=== PATIENT | male | born 1955 | race Caucasian/White ===

== ENCOUNTER 2017-09-09 09:48 | Emergency (ER) | payer BC ==
[~2017-09-09] VITALS: Ht 170.2 cm; Wt 65.0 kg
[2017-09-09] VITALS (10 sets, daily range): BP systolic 128–193; BP diastolic 72–98; PULSE 71–86; RESP 16–20; TEMP 97.8; O2SAT 98–100
--- NOTE | 2017-09-09 10:22 | PD ---
HPI Chief Complaint: Complaint Time Seen by Provider: 10:15 Travel History International Travel<30 days: No Contact w/Intl Traveler<30days: No Traveled to known affect area: No History of Present Illness HPI This 62-year-old male says he put his penis and testicles into the opening of a weight plate 5 hours ago. He has been unable to remove it. He applied ice. He has applied lubricant has not been able to remove them. Penis and scrotum have become quite swollen and painful. He last ate last night. He was able to urinate this morning. He denies any medical illnesses. [facility] Past Medical History Medical History: Denies Significant Hx Past Surgical History Surgical History: No Previous Surgery Social History Alcohol Use: No Tobacco Use: No Substance Use: No Allergies-Medications (Allergen,Severity, Reaction): Coded Allergies: No Known Allergies (Verified Allergy, Unknown, 09/09/17) Reported Meds & Prescriptions Reported Meds & Active Scripts Active No Active Prescriptions or Reported Medications Review of Systems General / Constitutional: No: Fever, Chills Eyes: No: Diploplia HENT: No: Headaches, Vertigo Cardiovascular: No: Chest Pain or Discomfort, Palpitations Respiratory: No: Cough, Shortness of Breath Gastrointestinal: No: Vomiting, Diarrhea Musculoskeletal: No: Myalgias, Arthralgias Skin: No Rash Physical Exam Narrative GENERAL: Well-developed male SKIN: Focused skin assessment warm/dry. HEAD: Atraumatic. Normocephalic. EYES: Pupils equal and round. No scleral icterus. No injection or drainage. ENT: No nasal bleeding or discharge. Mucous membranes pink and moist. NECK: Trachea midline. No JVD. CARDIOVASCULAR: Regular rate and rhythm. No murmur appreciated. RESPIRATORY: No accessory muscle use. Clear to auscultation. Breath sounds equal bilaterally. GASTROINTESTINAL: Abdomen soft, non-tender, nondistended. Hepatic and splenic margins not palpable. His penis and scrotum are engorged and verbal. He does have sensation. There is a 5 pound weight plate at the base of the penis and scrotum in which the penis and scrotum are entrapped MUSCULOSKELETAL: No obvious deformities. No clubbing. No cyanosis. No edema. NEUROLOGICAL: Awake and alert. No obvious cranial nerve deficits. Motor grossly within normal limits. Normal speech. PSYCHIATRIC: Appropriate mood and affect; insight and judgment normal. Data Data Last Documented VS Vital Signs Date Time Temp Pulse Resp B/P (MAP) Pulse Ox O2 Delivery O2 Flow Rate FiO2 09/09/17 11:13 71 18 162/83 (109) 100 Room Air 09/09/17 09:57 97.8 Orders Orders Electrocardiogram (09/09/17 10:15) Complete Blood Count With Diff (09/09/17 10:15) Basic Metabolic Panel (Bmp) (09/09/17 10:15) Ondansetron Inj (Zofran Inj) (09/09/17 10:30) Hydromorphone Pf Inj (Dilaudid Pf Inj) (09/09/17 10:30) Hydromorphone Pf Inj (Dilaudid Pf Inj) (09/09/17 11:45) Midazolam Inj (Versed Inj) (09/09/17 12:15) Midazolam Inj (Versed Inj) (09/09/17 12:15) Labs Laboratory Tests Test 09/09/17 10:20 White Blood Count 11.3 TH/MM3 Red Blood Count 4.59 MIL/MM3 Hemoglobin 13.7 GM/DL Hematocrit 41.6 % Mean Corpuscular Volume 90.7 FL Mean Corpuscular Hemoglobin 30.0 PG Mean Corpuscular Hemoglobin Concent 33.0 % Red Cell Distribution Width 13.3 % Platelet Count 261 TH/MM3 Mean Platelet Volume 8.1 FL Neutrophils (%) (Auto) 79.2 % Lymphocytes (%) (Auto) 14.2 % Monocytes (%) (Auto) 5.9 % Eosinophils (%) (Auto) 0.3 % Basophils (%) (Auto) 0.4 % Neutrophils # (Auto) 9.0 TH/MM3 Lymphocytes # (Auto) 1.6 TH/MM3 Monocytes # (Auto) 0.7 TH/MM3 Eosinophils # (Auto) 0.0 TH/MM3 Basophils # (Auto) 0.0 TH/MM3 CBC Comment DIFF FINAL Differential Comment Blood Urea Nitrogen 31 MG/DL Creatinine 0.94 MG/DL Random Glucose 125 MG/DL Calcium Level 8.8 MG/DL Sodium Level 139 MEQ/L Potassium Level 3.7 MEQ/L Chloride Level 104 MEQ/L Carbon Dioxide Level 24.7 MEQ/L Anion Gap 10 MEQ/L Estimat Glomerular Filtration Rate 82 ML/MIN MDM Medical Decision Making Medical Screen Exam Complete: Yes Emergency Medical Condition: Yes Medical Record Reviewed: Yes Differential Diagnosis Differential includes entrapped genitalia Narrative Course Patient made several attempts at home to for himself using compression and lubricants. I also tried to compress the penis and scrotum without success. I called Dr. Vidal of urology who advised that he did not have any cutting tools that wouldn't remove this way. He recommended that we contact the fire department. We called the fire department and they have come and have been able to cut the weight off. After removal there is some excoriation of the skin at the site of entrapment with small abrasion. Diagnosis Primary Impression: entrapment of the genitalia Scripts No Active Prescriptions or Reported Meds Disposition: 01 DISCHARGE HOME Condition: Stable Adam Nguyen MD Sep 09, 2017 10:22
[2017-09-09] MEDS ORDERED: ONDANSETRON HCL 4 MG/2 ML VIAL IV PUSH ONE (10:30)
[2017-09-09] MEDS ORDERED: HYDROmorphone HCL PF 2 MG/ML VIAL IV PUSH ONE ×2 (10:30→11:45)
[2017-09-09 10:42] LABS: BASOPHIL % 0.4 % (0.0-2.0); EOSINOPHIL % 0.3 % (0.0-4.0); HEMATOCRIT 41.6 % (39.0-51.0); HEMOGLOBIN 13.7 GM/DL (13.0-17.0); LYMPH % 14.2 % (9.0-44.0); LYMPHOCYTE # 1.6 TH/MM3 (1.0-4.8); MEAN CELL VOLUME 90.7 FL (80.0-100.0); MEAN PLATELET VOLUME 8.1 FL (7.0-11.0); MONO % 5.9 % (0.0-8.0); MONOCYTE # 0.7 TH/MM3 (0-0.9); NEUT % 79.2 % (16.0-70.0); PLATELET COUNT 261 TH/MM3 (150-450); RED BLOOD COUNT 4.59 MIL/MM3 (4.50-5.90); RED CELL DISTRIBUTION WIDTH 13.3 % (11.6-17.2); WHITE BLOOD COUNT 11.3 TH/MM3 (4.0-11.0)
[2017-09-09 10:49] LABS: CALCIUM 8.8 MG/DL (8.5-10.1)
[2017-09-09 10:50] LABS: BICARBONATE 24.7 MEQ/L (21.0-32.0)
[2017-09-09 10:53] LABS: CREATININE 0.94 MG/DL (0.60-1.30)
[2017-09-09] MEDS ORDERED: MIDAZOLAM HCL 5 MG/ML VIAL (1 ML) IV PUSH ONE (12:15)
[2017-09-09] MEDS ORDERED: MIDAZOLAM HCL 5 MG/5 ML VIAL IV PUSH ONE (12:15)
--- NOTE | 2017-09-09 16:29 | EKG ---
Date Performed: 09/09/2017 Time Performed: 10:21:28 PTAGE: 62 years EKG: Sinus rhythm NORMAL ECG NO PREVIOUS TRACING DOCTOR: Po Nayak Interpretating Date/Time 09/09/2017 16:27:11
== END 2017-09-09 16:16 | disposition home or self-care (01) ==
LOC: PHED 09:48
DX: S30.842A External constriction of penis, initial encounter (principal); S30.812A Abrasion of penis, initial encounter; X58.XXXA Exposure to other specified factors, initial encounter
CPT/HCPCS: 80048; 85025; 93005; 96374; 96375; 96376; 99284; J1170; J2250; J2405